=== PATIENT | female | born 2000 | race Caucasian/White ===

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

== ENCOUNTER 2020-03-18 08:29 | Day surgery (SDC) | payer OTHER ==
[~2020-03-18] VITALS: Ht 160 cm; Wt 63.0 kg
[~2020-03-18 08:29] MED LIST changes: +ACET-907 PO; +LIDOCAINE 2% 100MG/5ML SDV (FOR ANES.) As Ordered ONE; +NS 1,000 ML IV ONE; +propofoL 200 MG/20 ML VIAL As Ordered ONE
--- NOTE | 2020-03-18 10:00 | ROOR ---
Patient Name: Rocio Aguilera Procedure Date: 03/18/2020 9:24 AM Date of : 2000 Age: 19 Room: [facility] Gender: Female Note Status: Finalized Procedure: Colonoscopy Indications: Chronic diarrhea, Hematochezia Providers: Antoine Vann MD Referring MD: RUMA HENDRIX MD Requesting Provider: Medicines: Monitored Anesthesia Care Complications: No immediate complications. Procedure: Pre-Anesthesia Assessment: - Prior to the procedure, a History and Physical was performed, and patient medications and allergies were reviewed. The patient is competent. The risks and benefits of the procedure and the sedation options and risks were discussed with the patient. All questions were answered and informed consent was obtained. Patient identification and proposed procedure were verified by the physician, the nurse and the anesthesiologist in the procedure room. Mental Status Examination: alert and oriented. Airway Examination: normal oropharyngeal airway and neck mobility. Respiratory Examination: clear to auscultation. CV Examination: normal. Prophylactic Antibiotics: The patient does not require prophylactic antibiotics. Prior Anticoagulants: The patient has taken no previous anticoagulant or antiplatelet agents. ASA Grade Assessment: II - A patient with mild systemic disease. After reviewing the risks and benefits, the patient was deemed in satisfactory condition to undergo the procedure. The anesthesia plan was to use monitored anesthesia care (MAC). Immediately prior to administration of medications, the patient was re-assessed for adequacy to receive sedatives. The heart rate, respiratory rate, oxygen saturations, blood pressure, adequacy of pulmonary ventilation, and response to care were monitored throughout the procedure. The physical status of the patient was re-assessed after the procedure. The Colonoscope was introduced through the anus and advanced to the terminal ileum, with identification of the appendiceal orifice and IC valve. The colonoscopy was performed without difficulty. The patient tolerated the procedure well. The quality of the bowel preparation was good. The terminal ileum, ileocecal valve, appendiceal orifice, and rectum were photographed. Scope insertion time was 3 minutes. Scope withdrawal time was 9 minutes. The total duration of the procedure was 12 minutes. Findings: The perianal and digital rectal examinations were normal. The terminal ileum appeared normal. The left colon was significantly tortuous. Normal mucosa was found in the entire colon. Biopsies for histology were taken with a cold forceps from the right colon, left colon, transverse colon and rectosigmoid colon for evaluation of microscopic colitis. Verification of patient identification for the specimen was done by the physician and nurse using the patient's name, date and medical record number. Estimated blood loss was minimal. Impression: - The examined portion of the ileum was normal. - Tortuous colon. - Normal mucosa in the entire examined colon. Biopsied. Recommendation: - Patient has a contact number available for emergencies. The signs and symptoms of potential delayed complications were discussed with the patient. Return to normal activities tomorrow. Written discharge instructions were provided to the patient. - High fiber diet. - Continue present medications. - Use Metamucil capsules, 1 capsule PO BID. - Await pathology results. - Repeat colonoscopy at age 50 for screening purposes. - Telephone GI clinic for pathology results in 2 weeks. - Return to primary care physician. Antoine Vann MD Antoine Vann MD 03/18/2020 9:59:24 AM Electronically signed by Antoine Vann MD Number of Addenda: 0 Note Initiated On: 03/18/2020 9:24 AM Estimated Blood Loss: Estimated blood loss was minimal.
[2020-03-18 10:25] VITALS: BP 102/53
== END 2020-03-18 10:32 | disposition home or self-care (01) ==
LOC: M OPP 08:29
PROVIDERS: ATTEND Internal Medicine Gastroenterology
DX: Q43.8 Other specified congenital malformations of intestine (principal); K52.9 Noninfective gastroenteritis and colitis, unspecified; K92.1 Melena; F17.299 Nicotine dependence, other tobacco product, with unspecified nicotine-induced disorders; Z79.899 Other long term (current) drug therapy; Z88.0 Allergy status to penicillin

== ENCOUNTER 2020-05-22 17:30 | Emergency (ER) | payer OTHER ==
[~2020-05-22] VITALS: Ht 162.6 cm; Wt 65.1 kg
[~2020-05-22 17:30] MED LIST changes: -LIDOCAINE 2% 100MG/5ML SDV (FOR ANES.) As Ordered ONE; -NS 1,000 ML IV ONE; -propofoL 200 MG/20 ML VIAL As Ordered ONE
[2020-05-22] MEDS ORDERED: BACTRIM 160MG/800MG DS TAB PO ONE (18:45)
[2020-05-22] MEDS ORDERED: PHENAZOPYRIDINE 100 MG TAB PO ONE (18:45)
[2020-05-22] MEDS ORDERED: PYRI1TAB5 PO (18:48)
[2020-05-22] MEDS ORDERED: BACT800T5 PO (18:48)
[2020-05-22 18:57] VITALS: BP 127/67
== END 2020-05-22 18:58 | disposition home or self-care (01) ==
LOC: M ED 17:30
DX: N39.0 Urinary tract infection, site not specified (principal); Z88.0 Allergy status to penicillin

== ENCOUNTER 2020-07-07 09:30 | Emergency (ER) | payer OTHER ==
[~2020-07-07] VITALS: Ht 162.6 cm; Wt 62.5 kg
[~2020-07-07 09:30] MED LIST changes: +BACT800T5 PO; +PYRI1TAB5 PO
[2020-07-07 09:31] VITALS: BP 132/80
[2020-07-07] MEDS ORDERED: DIFL150T PO (10:38)
[2020-07-07 12:00] LABS: CHLAMYDIA DNA AMPLIFICATION NEGATIVE (NEGATIVE); GC DNA AMPLIFICATION NEGATIVE (NEGATIVE)
== END 2020-07-07 10:47 | disposition home or self-care (01) ==
LOC: M ED 09:30
DX: B37.9 Candidiasis, unspecified (principal); R80.9 Proteinuria, unspecified; Z88.0 Allergy status to penicillin

== ENCOUNTER 2020-07-09 22:14 | Emergency (ER) | payer OTHER ==
[~2020-07-09] VITALS: Ht 162.6 cm; Wt 62.5 kg
[~2020-07-09 22:14] MED LIST changes: +DIFL150T PO
[2020-07-10] MEDS ORDERED: VALA1TAB5 PO (02:55)
[2020-07-10] MEDS ORDERED: valACYclovir HCL 500 MG TAB PO ONE (03:00)
[2020-07-10 03:17] VITALS: BP 133/76
== END 2020-07-10 03:31 | disposition home or self-care (01) ==
LOC: M ED 22:14
DX: A60.04 Herpesviral vulvovaginitis (principal); R10.2 Pelvic and perineal pain; Z88.0 Allergy status to penicillin; Z79.3 Long term (current) use of hormonal contraceptives

== ENCOUNTER 2020-07-16 17:04 | Emergency (ER) | payer OTHER ==
[~2020-07-16] VITALS: Ht 162.6 cm; Wt 64.5 kg
[~2020-07-16 17:04] MED LIST changes: +VALA1TAB5 PO
--- OUTSIDE RECORDS SUMMARY | 2020-07-16 17:10 | CCD ---
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 Name Role Phone John GIORDANO MD Unavailable Unavailable John GIORDANO MD Unavailable Unavailable John GIORDANO MD Unavailable Unavailable John GIORDANO MD Unavailable Unavailable John GIORDANO MD Unavailable Unavailable John GIORDANO MD Unavailable Unavailable John GIORDANO MD Unavailable Unavailable John GIORDANO MD Unavailable Unavailable John GIORDANO MD Unavailable Unavailable John GIORDANO MD Unavailable Unavailable John GIORDANO MD Unavailable Unavailable John GIORDANO MD Unavailable Unavailable John GIORDANO MD Unavailable Unavailable John GIORDANO MD Unavailable Unavailable John GIORDANO MD Unavailable Unavailable John GIORDANO MD Unavailable Unavailable John GIORDANO MD Unavailable Unavailable John GIORDANO MD Unavailable Unavailable John GIORDANO MD Unavailable Unavailable John GIORDANO MD Unavailable Unavailable John GIORDANO MD Unavailable Unavailable John GIORDANO MD Unavailable Unavailable John GIORDANO MD Unavailable Unavailable John GIORDANO MD Unavailable Unavailable John GIORDANO MD Unavailable Unavailable John GIORDANO MD Unavailable Unavailable John GIORDANO MD Unavailable Unavailable John GIORDANO MD Unavailable Unavailable John GIORDANO MD Unavailable Unavailable John GIORDANO MD Unavailable Unavailable John GIORDANO MD Unavailable Unavailable John GIORDANO MD Unavailable Unavailable John GIORDANO MD Unavailable Unavailable Re-disclosure Warning The records that you are about to access may contain information from federally-assisted alcohol or drug abuse programs. If such information is present, then the following federally mandated warning applies: This information has been disclosed to you from records protected by federal confidentiality rules (42 CFR part 2). The federal rules prohibit you from making any further disclosure of this information unless further disclosure is expressly permitted by the written consent of the person to whom it pertains or as otherwise permitted by 42 CFR part 2. A general authorization for the release of medical or other information is NOT sufficient for this purpose. The Federal rules restrict any use of the information to criminally investigate or prosecute any alcohol or drug abuse patient.The records that you are about to access may contain highly sensitive health information, the redisclosure of which is protected by Article 27-F of the [facility] Public Health law. If you continue you may have access to information: Regarding HIV / AIDS; Provided by facilities licensed or operated by the [facility] Office of Mental Health; or Provided by the [facility] Office for People With Developmental Disabilities. If such information is present, then the following [facility] mandated warning applies: This information has been disclosed to you from confidential records which are protected by state law. State law prohibits you from making any further disclosure of this information without the specific written consent of the person to whom it pertains, or as otherwise permitted by law. Any unauthorized further disclosure in violation of state law may result in a fine or nursing home sentence or both. A general authorization for the release of medical or other information is NOT sufficient authorization for further disc losure. Encounters Encounter Providers Location Date Indications Data Source(s ) Outpatient Attender: JEANNIE Staples/Miguel/Kody de leon/Edis 01/26/2020 02:50:00 PM EDT [facility] ([facility], ) Medications Medication Brand Name Start Date Product Form Dose Route Admi nistrative Instructions Pharmacy Instructions Status Indications Reaction Description Data Source(s) Psyllium 520 MG Oral Capsule Psyllium Fiber 06/26/2020 12:00:00 AM EST ORAL active [facility] ([facility]) Dicyclomine Hydrochloride 20 MG Oral Tablet Dicyclomine HCL 06/26/2020 12:00:00 AM EST ORAL active [facility] ([facility]) Omeprazole 40 MG Delayed Release Oral Capsule Omeprazole 03/27/2020 12:00:00 AM EDT completed [facility] ([facility]) Psyllium 520 MG Oral Capsule TGT Psyllium Fiber 03/27/2020 12:00:00 A M EDT completed [facility] ([facility]) Bisacodyl 5 MG Delayed Release Oral Tablet [Dulcolax] Dulcol ax 02/23/2020 12:00:00 AM EDT completed [facility] ([facility]) POLYETHYLENE GLYCOL 3350 105 MG/ML / Pot assium Chloride 0.94353 MEQ/ML / Sodium Bicarbonate 0.017 MEQ/ML / Sodium Chloride 0.0479 MEQ/ML Oral Solution [GaviLyte-N] Gavilyte-N With Flavor Pack 02/23/2020 12:00:00 AM EDT completed [facility] ([facility]) Clenpiq Clenpiq 02/23/2020 12:00:00 AM EDT complet ed [facility] ([facility]) Insurance Providers Payer name Policy type / Coverage type Policy ID Covered libertarian ID Covered libertarian's relationship to liu Policy Liu Plan Information [facility] [employer] [id number] Surgeries/Procedures Procedure Description Date Indications Data Source(s) Colonoscopy Flexible Proximal To Splenic Flexure W/Biopsy Si ngle/ 03/18/2020 12:00:00 AM EDT [facility] ([facility], ) Results ID Date Data Source [id number] 03/18/2020 09:37:00 AM EDT [facility] ([facility]) Name Value Range Interpretation Code Description Data Aydee rce(s) Supporting Document(s) Surgical pathology study Laboratory test result [facility] ([facility]) FINAL DIAGNOSIS Colon, random biopsy: Fragments of colonic mucosa, without significant acute or chronic inflammatory changes. Scattered lymphoid aggregates and few muciphages are noted in the lamina propria. No evidence for microscopic colitis is noted. 03/19/2020 - 1122 CLINICAL DIAGNOSIS Change in bowel habits, diarrhea and abdominal pain 03/18/2020 - 1441 GROSS DIAGNOSIS Received in formalin labeled "random colon biopsy" is a 0.8 x 0.2 x 0.2 cm. aggregate of mucosal fragments. All in one. - 03/18/2020 - 1441 Signed Dariel Hernandez MD 03/19/2020 1338 Procedure Vital Signs ID Date Data Source UNK Name Value Range Interpretation Code Description Data Source(s) Body surface area Derived from formula 1.67 m2 1.67 m2 [facility] ([facility]) Body height [Percentile] 45 % 45 % [facility] ([facility]) Body weight 62.597 kg 62.597 kg [facility] ([facility]) [place] body weight 120 [lb_av] 120 [lb_av] [facility] ([facility]) Body mass index (BMI) [Ratio] 23.7 kg/m2 23.7 k g/m2 [facility] ([facility]) Body weight 138.00 [lb_av] 138.00 [lb_av] [facility] ([facility]) Body height 64 [in_i] 64 [in_i] [facility] ([facility]) 5'4" Diastolic blood pressure 66 mm[Hg] 66 mm[Hg] [facility] ([facility]) Systolic blood pressure 118 mm[Hg] 118 mm[Hg] M [facility] ([facility]) Body surface area Derived from formula 1.69 m2 1.69 m2 [facility] ([facility]) Body height [Percentile] 46 % 46 % [facility] ([facility]) Body weight 64.411 kg 64.411 kg [facility] ([facility]) [place] body weight 120 [lb_av] 120 [lb_av] [facility] ([facility]) Body mass index (BMI) [Ratio] 24.4 kg/m2 24.4 k g/m2 [facility] ([facility]) Body weight 142.00 [lb_av] 142.00 [lb_av] [facility] ([facility]) Body height 64 [in_i] 64 [in_i] [facility] ([facility] 5'4" Diastolic blood pressure 66 mm[Hg] 66 mm[Hg] [facility] ([facility]) Systolic blood pressure 110 mm[Hg] 110 mm[Hg] Phi ELIZABETH ([facility])
[2020-07-16] MEDS ORDERED: DICY20TA11 (17:14)
--- OUTSIDE RECORDS SUMMARY | 2020-07-16 19:30 | CCD ---
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 If you continue you may have access to information: Regarding HIV / AIDS; Provided by facilities licensed or operated by the [facility] Office of Mental Health; or Provided by the [facility] Office for People With Developmental Disabilities. If such information is present, then the following [facility] mandated warning applies: This information has been [...] law may result in a fine or fci sentence or both. A general authorization for the release of medical or other information is NOT sufficient authorization for further disc losure. Encounters Encounter Providers Location Date Indications Data Source(s ) Outpatient Attender: JEANNIE Staples/Miguel/Kody de leon/Edis 01/26/2020 02:50:00 PM EDT [facility] ([facility], ) Medications Medication Brand Name Start Date Product Form Dose Route Admi nistrative Instructions Pharmacy Instructions Status Indications Reaction Description Data Source(s) Psyllium 520 MG Oral Capsule Psyllium Fiber 06/26/2020 12:00:00 AM EST ORAL active [facility] ([facility]) Dicyclomine Hydrochloride 20 MG Oral Tablet Dicyclomine HCL 06/26/2020 12:00:00 AM EST ORAL active [facility] ([facility]) Omeprazole 40 MG Delayed Release Oral Capsule Omeprazole 03/27/2020 12:00:00 AM EDT completed [facility] ([facility]) Psyllium 520 MG Oral Capsule TGT Psyllium Fiber 03/27/2020 12:00:00 A M EDT completed [facility] ([facility]) Bisacodyl 5 MG Delayed Release Oral Tablet [Dulcolax] Dulcol ax 02/23/2020 12:00:00 AM EDT completed [facility] ([facility]) POLYETHYLENE GLYCOL 3350 105 MG/ML / Pot assium Chloride 0.67641 MEQ/ML / Sodium Bicarbonate 0.017 MEQ/ML / Sodium Chloride 0.0479 MEQ/ML Oral Solution [GaviLyte-N] Gavilyte-N With Flavor Pack 02/23/2020 12:00:00 AM EDT completed [facility] ([facility]) Clenpiq Clenpiq 02/23/2020 12:00:00 AM EDT complet ed [facility] ([facility]) Insurance Providers Payer name Policy type / Coverage type Policy ID Covered constitution party ID Covered constitution party's relationship to liu Policy Liu Plan Information [facility] [employer] [facility] [id number] Surgeries/Procedures Procedure Description Date Indications Data Source(s) Colonoscopy Flexible Proximal To Splenic Flexure W/Biopsy Si ngle/ 03/18/2020 12:00:00 AM EDT [facility] ([facility], ) Results ID Date Data Source [id number] 03/18/2020 09:37:00 AM EDT [facility] ([facility]) Name Value Range Interpretation Code Description Data Aydee rce(s) Supporting Document(s) Surgical pathology study Laboratory test result [facility] ([facility]) FINAL DIAGNOSIS Colon, random biopsy: Fragments of [...] Derived from formula 1.67 m2 1.67 m2 [facility] ([facility]) Body height [Percentile] 45 % 45 % [facility] ([facility]) Body weight 62.597 kg 62.597 kg [facility] ([facility]) [place] body weight 120 [lb_av] 120 [lb_av] [facility] ([facility]) Body mass index (BMI) [Ratio] 23.7 kg/m2 23.7 k g/m2 [facility] ([facility]) Body weight 138.00 [lb_av] 138.00 [lb_av] [facility] ([facility]) Body height 64 [in_i] 64 [in_i] [facility] ([facility]) 5'4" Diastolic blood pressure 66 mm[Hg] 66 mm[Hg] [facility] ([facility]) Systolic blood pressure 118 mm[Hg] 118 mm[Hg] M [facility] ([facility]) Body surface area Derived from formula 1.69 m2 1.69 m2 [facility] ([facility]) Body height [Percentile] 46 % 46 % [facility] ([facility]) Body weight 64.411 kg 64.411 kg [facility] ([facility]) [place] body weight 120 [lb_av] 120 [lb_av] [facility] ([facility]) Body mass index (BMI) [Ratio] 24.4 kg/m2 24.4 k g/m2 [facility] ([facility]) Body weight 142.00 [lb_av] 142.00 [lb_av] [facility] ([facility]) Body height 64 [in_i] 64 [in_i] [facility] ([facility] 5'4" Diastolic blood pressure 66 mm[Hg] 66 mm[Hg] [facility] ([facility]) Systolic blood pressure 110 mm[Hg] 110 mm[Hg] Phi ELIZABETH ([facility])
[2020-07-16 19:56] VITALS: BP 128/78
== END 2020-07-16 19:58 | disposition home or self-care (01) ==
LOC: M ED 17:04
DX: R45.851 Suicidal ideations (principal); Z88.0 Allergy status to penicillin

== ENCOUNTER 2020-11-08 17:39 | Emergency (ER) | payer OTHER ==
[~2020-11-08] VITALS: Ht 162.6 cm; Wt 65.1 kg
[~2020-11-08 17:39] MED LIST changes: +DICY20TA11
[2020-11-08 17:40] VITALS: BP 137/76
[2020-11-08] MEDS ORDERED: BUSP10TA PO (18:02)
[2020-11-08] MEDS ORDERED: HYDR-3363 PO (18:02)
[2020-11-08] MEDS ORDERED: LEXA1TAB PO (18:02)
[2020-11-08] MEDS ORDERED: valACYclovir HCL 500 MG TAB PO ONE (20:45)
[2020-11-08] MEDS ORDERED: VALT1TAB PO (21:35)
== END 2020-11-08 22:10 | disposition home or self-care (01) ==
LOC: M ED 17:39
DX: B00.9 Herpesviral infection, unspecified (principal); R30.0 Dysuria; Z79.899 Other long term (current) drug therapy

== ENCOUNTER → 2021-01-23 | Outpatient (REF) | payer OTHER ==
[~2021-01-23] MED LIST changes: +BUSP10TA PO; +HYDR-3363 PO; +LEXA1TAB PO; +VALT1TAB PO
[2021-01-23 21:31] LABS: GC DNA AMPLIFICATION NEGATIVE (NEGATIVE)
== END ==
LOC: M LAB REF 19:47
PROVIDERS: ATTEND Physician Assistant
DX: R30.0 Dysuria (principal)